=== PATIENT | female | born 1955 | race Caucasian/White ===

== ENCOUNTER 2016-04-27 05:58 | Day surgery (SDC) | payer BC ==
[~2016-04-27] VITALS: Ht 160 cm; Wt 58.2 kg
[~2016-04-27 05:58] MED LIST: LEVOTHYROXIN0.075 MG PO; LIPITOR20 MG PO
[2016-04-27] MEDS ORDERED: SYNTHROID0.075 MG/T PO (06:25)
[2016-04-27] MEDS ORDERED: SYNTHROID0.1 MG/TAB PO (06:26)
[2016-04-27] MEDS ORDERED: SYNTHROID0.088 MG/T PO (06:27)
[2016-04-27 06:39] VITALS: BP 121/78; PULSE 48; TEMP 97.4
[2016-04-27 09:42] VITALS: BP 89/54; PULSE 50; TEMP 97.2
[2016-04-27] MEDS ORDERED: ZOFRAN ODT4 MG PO (09:44)
[2016-04-27] MEDS ORDERED: NORCO 325 MG-51 TAB PO (09:44)
[2016-04-27 09:57] VITALS: BP 96/48; PULSE 57
[2016-04-27 10:12] VITALS: BP 109/62; PULSE 49
[2016-04-27 10:27] VITALS: BP 106/56; PULSE 46
== END 2016-04-27 10:50 | disposition home or self-care (01) ==
LOC: SDCO 05:58
DX: D17.1 Benign lipomatous neoplasm of skin and subcutaneous tissue of trunk (principal)
CPT/HCPCS: J0690; J1885; J2704; J3010

== ENCOUNTER → 2016-06-14 | Outpatient (CLI) | payer BC ==
[~2016-06-14] MED LIST changes: +NORCO 325 MG-51 TAB PO; +SYNTHROID0.075 MG/T PO; +SYNTHROID0.088 MG/T PO; +SYNTHROID0.1 MG/TAB PO; +ZOFRAN ODT4 MG PO
== END ==
LOC: MC.RAD 05-14 07:00
DX: Z12.31 Encounter for screening mammogram for malignant neoplasm of breast (principal); D24.2 Benign neoplasm of left breast; D24.1 Benign neoplasm of right breast

== ENCOUNTER → 2018-05-30 | Outpatient (CLI) | payer BC | LOC: MC.RAD 11:34 | DX: Z12.31 Encounter for screening mammogram for malignant neoplasm of breast (principal) ==

== ENCOUNTER → 2019-07-03 | Outpatient (CLI) | payer BC | LOC: MC.RAD 06-01 11:15 | DX: Z12.31 Encounter for screening mammogram for malignant neoplasm of breast (principal); Z98.82 Breast implant status ==

== ENCOUNTER → 2020-07-03 | Outpatient (CLI) | payer BC | LOC: MC.RAD 12:52 | DX: Z12.31 Encounter for screening mammogram for malignant neoplasm of breast (principal) ==

== ENCOUNTER → 2021-07-06 | Outpatient (CLI) | payer BC | LOC: MC.RAD 12:51 | DX: Z12.31 Encounter for screening mammogram for malignant neoplasm of breast (principal) ==

== ENCOUNTER → 2023-07-11 | Outpatient (CLI) | payer MEDICARE, OTHER | LOC: MC.RAD 08:20 | DX: Z12.31 Encounter for screening mammogram for malignant neoplasm of breast (principal) ==